=== PATIENT | male | born 1955 | race Caucasian/White ===

== ENCOUNTER → 2017-01-30 | Outpatient (CLI) | payer OTHER ==
[~2017-01-30] MED LIST: ATENOLOL-CHLOR1 EACH PO; CIALIS20 MG PO; FISH OIL1000 MG PO; GLUCOPHAGE1000 MG PO; GREEN TEA1 EACH PO; THERAPEUTIC M1 EAC1 PO; TYLENOL WITH C1 EACH PO
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
== END | disposition disaster alternative care site (69) ==
LOC: GNEU 14:30
DX: R20.9 Unspecified disturbances of skin sensation (principal)